=== PATIENT | male | born 1980 | race Asian ===

== ENCOUNTER 2022-06-07 10:39 | Emergency (ER) | payer OTHER ==
[~2022-06-07] VITALS: Ht 185.4 cm; Wt 81.6 kg
[2022-06-07 10:41] VITALS: TEMP 98.2
[2022-06-07 12:40] VITALS: BP 174/94
== END 2022-06-07 12:40 | disposition home or self-care (01) ==
LOC: ED 10:39
DX: K08.89 Other specified disorders of teeth and supporting structures (principal)
CPT/HCPCS: 96372; 99282; J1885